=== PATIENT | male | born 1965 | race Caucasian/White ===

== ENCOUNTER 2021-02-27 15:17 | Emergency (ER) | payer OTHER ==
[2021-02-27] MEDS ORDERED: Iopamidol 612 MG/ML 100 ML Bottle IVPUSH ONE (15:44)
[2021-02-27] MEDS ORDERED: Sodium Chloride 0.9% 10 ML Syringe FLUSH PRN (15:44)
[2021-02-27] MEDS ORDERED: Sodium Chloride 0.9% 1,000 ML IV SCH (15:45)
--- NOTE | 2021-02-27 16:57 | CT ---
[id number] CT/CT Abdomen Pelvis W IV EXAM: CT Abdomen Pelvis W IV CLINICAL DATA: ELEVATED WHITE BLOOD CELL COUNT ABDOMINAL PAIN COMPARISON: No previous similar exam is available. FINDINGS: There is moderate uncomplicated diverticular disease of the large bowel The liver and spleen are unremarkable. The kidneys and adrenals show no abnormality. The aorta and pancreas are within normal limits. There is no bowel distention. There is no bowel wall thickening either. There is no free fluid or free air. There is no adenopathy. The pelvis shows no mass, free fluid, abscess, inflammatory change, or adenopathy. IMPRESSION: DIVERTICULOSIS WITHOUT DIVERTICULITIS Shawn Moreno MD 02/27/21 [id number] Thank you for allowing us to participate in the care of your patient.
--- NOTE | 2021-02-27 19:03 | EDM.PDOC ---
ED HPI GENERAL MEDICAL PROBLEM - General Chief Complaint: Gastrointestinal Problem Stated Complaint: INFECTION? Time Seen by Provider: 02/27/21 15:30 Source of Information: Reports: Patient History Limitations: Reports: No Limitations - History of Present Illness INITIAL COMMENTS - FREE TEXT/NARRATIVE: Pt. presents to ER with complaints of diarrhea, nausea, and abdominal cramping that started about 4 days ago. He states that he was seen in the clinic today for the problem. The clinic did a CBC and BMP today and his white count was mildly elevated so he was sent here. Pt. states that he has not been taking any immodium for the diarrhea. He denies any fever or chills. No recent hospitalization or antibiotic use. He denies any bloody or tarry stools. Pt. denies any chest pain or shortness of breath. No lightheadedness or weakness. He states that he has not recently drank from any untreated water sources. Denies any ill contacts. Onset: Today Onset Date: 02/27/21 Location: Reports: Abdomen Quality: Reports: Ache Severity: Mild Associated Symptoms: Reports: Nausea/Vomiting. Denies: Fever/Chills, Malaise, Weakness - Related Data Allergies Allergy/AdvReac Type Severity Reaction Status Date / Time No Known Allergies Allergy Verified 02/27/21 15:49 Home Meds: Home Meds Empagliflozin [Jardiance] 10 mg PO DAILY 02/27/21 [History] Escitalopram [Lexapro] 10 mg PO DAILY 02/27/21 [History] LORazepam [Ativan] 0.5 mg PO ASDIRECTED PRN 02/27/21 [History] Lisinopril/Hydrochlorothiazide [Lisinopril-Hctz 20-25 mg Tab] 1 each PO DAILY 02/27/21 [History] amLODIPine [Norvasc] 5 mg PO DAILY 02/27/21 [History] busPIRone [Buspar] 5 mg PO DAILY 02/27/21 [History] metFORMIN [Glucophage] 1,000 mg PO BIDMEALS 02/27/21 [History] Past Medical History Cardiovascular History: Reports: Hypertension Endocrine/Metabolic History: Reports: Diabetes, Type II Social & Family History - Tobacco Use Tobacco Use Status *Q: Unknown Ever Used Tobacco ED ROS GENERAL - Review of Systems Review Of Systems: See Below Constitutional: Reports: No Symptoms HEENT: Reports: No Symptoms Respiratory: Reports: No Symptoms Cardiovascular: Reports: No Symptoms Endocrine: Reports: No Symptoms GI/Abdominal: Reports: Anorexia, Diarrhea, Nausea. Denies: Black Stool, Bloody Stool, Constipation, Difficulty Swallowing, Distension, Hematemesis, Hematochezia, Melena, Mucous in Stool, Vomiting : Reports: No Symptoms Musculoskeletal: Reports: No Symptoms Skin: Reports: No Symptoms Neurological: Reports: No Symptoms Psychiatric: Reports: No Symptoms Hematologic/Lymphatic: Reports: No Symptoms Immunologic: Reports: No Symptoms ED EXAM, GENERAL - Physical Exam Exam: See Below Exam Limited By: No Limitations General Appearance: Alert, WD/WN, No Apparent Distress Respiratory/Chest: No Respiratory Distress, Lungs Clear, Normal Breath Sounds, No Accessory Muscle Use, Chest Non-Tender Cardiovascular: Normal Peripheral Pulses, Regular Rate, Rhythm, No Edema, No Gallop, No JVD, No Murmur, No Rub GI/Abdominal: Soft, Non-Tender, No Organomegaly, No Distention, No Mass (Male) Exam: Deferred Rectal (Males) Exam: Deferred. No: Black Stool, Bloody Stool Back Exam: Normal Inspection, Full Range of Motion Extremities: Normal Inspection, Normal Range of Motion, Non-Tender, No Pedal Edema, Normal Capillary Refill Neurological: Alert, Oriented, CN II-XII Intact, Normal Cognition, Normal Gait, Normal Reflexes, No Motor/Sensory Deficits Psychiatric: Normal Affect, Normal Mood Skin Exam: Warm, Dry, Intact, Normal Color, No Rash Lymphatic: No Adenopathy Course - Vital Signs Last Recorded V/S: Last Vital Signs Temp 36.5 C 02/27/21 15:25 Pulse 72 02/27/21 15:25 Resp 16 02/27/21 15:25 BP 132/76 02/27/21 15:25 Pulse Ox 96 02/27/21 15:25 - Orders/Labs/Meds Orders: Active Orders 24 hr Category Date Time Status Peripheral IV Insertion Adult [OM.PC] Routine Oth 02/27/21 15:44 Ordered Labs: Laboratory Tests 02/27/21 Range/Units 15:44 Magnesium 1.6 L (1.8-2.4) mg/dL Total Bilirubin 0.4 (0.2-1.0) mg/dL AST 23 (15-37) U/L ALT 47 (16-63) U/L Amylase 18 L (25-115) U/L Lipase 86 (73-393) U/L Meds: Medications Discontinued Medications Generic Name Dose Route Start Last Admin Trade Name Sherman PRN Reason Stop Dose Admin Sodium Chloride 1,000 mls @ 1,000 mls/hr 02/27/21 15:45 02/27/21 16:16 Normal Saline IV 1,000 mls/hr ASDIRECTED JOSEPH Administration Iopamidol 100 ml 02/27/21 15:44 02/27/21 16:07 Iopamidol 612 Mg/Ml 100 Ml Bottle IVPUSH 02/27/21 15:45 100 ml ONETIME ONE Administration Sodium Chloride 10 ml 02/27/21 15:44 Sodium Chloride 0.9% 10 Ml Syringe FLUSH ASDIRECTED PRN Keep Vein Open - Radiology Interpretation Free Text/Narrative:: CT abdomen and pelvis with contrast obtained. + diverticulosis, no diverticulitis. No free air. No obvious obstruction. No other acute pathology noted. Departure - Departure Time of Disposition: 19:07 Disposition: Home, Self-Care 01 Clinical Impression: Gastroenteritis - Discharge Information Instructions: Viral Gastroenteritis, Adult, [id number] Referrals: Adeola Buck PA-C [Primary Care Provider] - Forms: ED Department Discharge Additional Instructions: Home to rest. Drink plenty of fluids. Immodium 1 tablet after every loose stool. You can take a total of 8 tablets a day. Take them until your stools are normal. Sepsis Event Note (ED) - Evaluation Sepsis Screening Result: No Definite Risk - Focused Exam Vital Signs: Vital Signs Temp Pulse Resp BP Pulse Ox 02/27/21 15:25 36.5 C 72 16 132/76 96 - Problem List Review Problem List Initiated/Reviewed/Updated: Yes - My Orders Last 24 Hours: My Active Orders 02/27/21 15:44 Peripheral IV Insertion Adult [OM.PC] Routine - Assessment/Plan Last 24 Hours: My Active Orders 02/27/21 15:44 Peripheral IV Insertion Adult [OM.PC] Routine Plan: Home to rest. Drink plenty of fluids. Immodium 1 tablet after every loose stool. You can take a total of 8 tablets a day. Take them until your stools are normal.
== END 2021-02-27 17:15 | disposition home or self-care (01) ==
LOC: VM.ED 15:17
DX: K52.9 Noninfective gastroenteritis and colitis, unspecified (principal); I10 Essential (primary) hypertension; E11.9 Type 2 diabetes mellitus without complications; Z79.84 Long term (current) use of oral hypoglycemic drugs; Z79.899 Other long term (current) drug therapy
CPT/HCPCS: 36415; 74177; 82150; 82247; 83690; 83735; 84450; 84460; 99283; 99284-25; J7030; Q9967

== ENCOUNTER 2021-07-26 07:02 | Day surgery (SDC) | payer OTHER ==
[~2021-07-26 07:02] MED LIST: Lactated Ringers 1,000 ML IV SCH; Sodium Chloride 0.9% 10 ML Syringe FLUSH PRN
[2021-07-26] MEDS ORDERED: fentaNYL 100 MCG/2 ML SDV ONE (07:54)
[2021-07-26] MEDS ORDERED: Propofol 200 MG/20 ML SDV ONE ×2 (07:54→08:40)
--- NOTE | 2021-07-26 10:55 | OR ---
DATE OF SURGERY: 07/26/2021. REFERRING PROVIDER: Adeola Buck PA-C. PRE-OPERATIVE DIAGNOSES: Colon cancer screening. This is the patient's first colonoscopy. He does have previous history of diverticulitis. POST-OPERATIVE DIAGNOSES: 1. 2 tiny polyps removed using cold forceps. a. 2 mm polyp at 25 cm. b. 2 mm rectal polyp. 2. Moderate left-sided diverticulosis. 3. Normal-appearing distal ileum. PROCEDURE: Colonoscopy with polypectomy x2 using cold forceps. SURGEON: Chico Rodríguez M.D. ANESTHESIA: Monitored anesthesia care. BOWEL PREP: Good. Morro is a 56-year-old male who was brought to the endoscopy suite after discussing risks and benefits of the procedure. Informed consent was obtained for conscious sedation and colonoscopy with or without biopsy and/or polypectomy. We also discussed possibility of missed lesions. Pre-procedure exam was unremarkable. IV, oxygen, and monitors were placed. The patient was placed in the left lateral decubitus position. Sedation was administered and a digital rectal exam was performed and unremarkable. Colonoscope was passed into the rectum and slowly advanced all the way to the cecum. Cecum was viewed and photographed. Ileocecal valve was intubated, and distal ileum was normal in appearance. The colonoscope was slowly withdrawn and the mucosa was closed observed in a direct circumferential manner. The ascending colon was unremarkable. The transverse colon was unremarkable. The descending colon and sigmoid colon revealed moderate diverticulosis. There was a small 2 mm polyp at 25 cm from the anal verge removed using cold forceps. Rectal mucosa revealed 2 mm polyp as well, removed using cold forceps. Otherwise, rectal mucosa was unremarkable. Scope was removed. The patient tolerated the procedure well. The patient was monitored until that baseline status. Discharge instructions were reviewed and the patient was discharged in good condition. COMPLICATIONS: None. TOTAL TIME: 30 minutes. ESTIMATED BLOOD LOSS: About 1 mL or less. RECOMMENDATIONS/FOLLOW-UP: We will await results with pathology report to determine ideal followup interval. I would like to kindly thank, Adeola Buck PA-C, for this referral. DMB: 07/26/2021 09:09:17 MODL: 07/26/2021 10:18:28 /[id number]
== END 2021-07-26 10:12 | disposition home or self-care (01) ==
LOC: VM.SDS 07:02
PROVIDERS: ATTEND Family Medicine
DX: Z12.11 Encounter for screening for malignant neoplasm of colon (principal); K57.30 Diverticulosis of large intestine without perforation or abscess without bleeding; K63.5 Polyp of colon; K62.1 Rectal polyp; E11.9 Type 2 diabetes mellitus without complications; I10 Essential (primary) hypertension; E87.6 Hypokalemia; E78.00 Pure hypercholesterolemia, unspecified; G47.33 Obstructive sleep apnea (adult) (pediatric); F41.1 Generalized anxiety disorder; F32.A Depression, unspecified; K21.9 Gastro-esophageal reflux disease without esophagitis; Z90.49 Acquired absence of other specified parts of digestive tract; Z87.19 Personal history of other diseases of the digestive system; Z79.899 Other long term (current) drug therapy; Z79.84 Long term (current) use of oral hypoglycemic drugs; Z98.890 Other specified postprocedural states; Z87.891 Personal history of nicotine dependence
CPT/HCPCS: 00812; 82947; J2704; J3010; J7120